=== PATIENT | male | born 2005 | race Caucasian/White ===

== ENCOUNTER 2024-09-13 13:09 | Emergency (ER) | payer OTHER, SELFPAY ==
[2024-09-13 13:31] VITALS: BP 129/77; PULSE 107; RESP 16; TEMP 36.9; O2SAT 100
--- NOTE | 2024-09-13 13:58 | ED.MALEGU ---
HPI - Male Genitourinary General Chief complaint: Urogenital-Male Stated complaint: TESTICLE PAIN Time Seen by Provider: 09/13/24 13:39 Source: patient, family (Mother) and RN notes reviewed Mode of arrival: ambulatory Limitations: no limitations History of Present Illness HPI Narrative: Patient presents today complaining of discomfort to the left testicle. States he was in the shower 3 days ago and felt his left testicle rotate, ?in an abnormal fashion. ? States that now his left testicle is riding higher than the right which is abnormal for him. Also reports some, ?tightness? with intermittent mild discomfort, but denies outright pain, redness, swelling, dysuria, hematuria, urethral discharge. Related Data Home Medications ?Medication ?Instructions ?Recorded ?Confirmed ?Last Taken ?Type dicyclomine 10 mg capsule mg 09/13/24 Unknown History Allergies Allergy/AdvReac Type Severity Reaction Status Date / Time amoxicillin Allergy Unknown Unknown Verified 09/13/24 13:31 Review of Systems Review of Systems: CONSTITUTIONAL: Denies body aches, fever, chills, or sweats. EYES: Denies visual changes, redness, or discharge. ENT: Denies rhinorrhea, congestion, sore throat, or otalgia. CARDIOVASCULAR: Denies chest pain, palpitations, or edema. RESPIRATORY: Denies cough or dyspnea. GASTROINTESTINAL: Denies abdominal pain, nausea, vomiting, or diarrhea. GENITOURINARY: + left testicular discomfort/ tightness SKIN: Denies rash, itching, or wounds. MUSCULOSKELETAL: Denies back pain, joint pain, or myalgia. NEUROLOGIC: Denies headache, numbness, tingling, or weakness. PSYCH: Denies depression or anxiety. PMFSH Comments At time of signature, I have reviewed and agree with nursing past medical, surgical, social and family history unless otherwise noted. Please see nursing chart for further information. There is no relevant family history pertinent to the presenting complaint Exam Narrative: GENERAL: Well-appearing, well-nourished, and in no acute distress. HEAD: Normocephalic, atraumatic. EYES: EOMI. No redness or drainage. Conjunctivae normal. ENT: Mucous membranes pink and moist. NECK: Normal AROM. CHEST: No respiratory distress. : Exam chaperoned by Jacob Washington RT. Very mild tenderness to the anterior superior left testicle. No swelling, redness or other abnormalities. The left testicle is riding higher than the right. Right testicle normal and nontender. EXTREMITIES: Normal range of motion. No edema. SKIN: Warm, dry, no rash. Capillary refill normal. Normal skin turgor. NEURO: No focal deficits. Alert and oriented x3. Gait steady. PSYCH: Normal affect. No signs of depression or anxiety. Course Course Level of Care: Express Care Visit Vital Signs Vital signs: Vital Signs Temperature 98.5 F 09/13/24 13:31 Pulse Rate 107 H 09/13/24 13:31 Respiratory Rate 16 09/13/24 13:31 Blood Pressure 129/77 09/13/24 13:31 Pulse Oximetry 100 09/13/24 13:31 Temperature 98.5 F 09/13/24 13:31 Pulse Rate 107 H 09/13/24 13:31 Respiratory Rate 16 09/13/24 13:31 Blood Pressure 129/77 09/13/24 13:31 Pulse Oximetry 100 09/13/24 13:31 Reviewed Transfer Transfered to: [place] Transportation: Other (Private vehicle) Transfer rationale: Left testicular pain, r/o torsion Accepting physician: King MDM - Male Genitourinary MDM Narrative Medical decision making narrative: Patient will be transferred to the ED for further evaluation of his testicular discomfort and asymmetry. Differential Diagnosis Differential diagnosis: Likely epididymitis, inguinal hernia and other (testicular torsion) Critical Care Time Critical Care Time Critical Care Time: No Discharge Plan Discharge Clinical Impression: Left testicular pain Patient Disposition: Acute Care Hospital Condition: Stable Instructions: Antibiotic Form Patient Language: Turkmen Prescriptions: No Action dicyclomine 10 mg capsule Follow-up/Referrals: Harms,Rahul Guy M.D. [Primary Care Provider] - Time of Disposition: 13:59
== END 2024-09-13 14:03 | disposition short-term general hospital (02) ==
PROVIDERS: Emergency Provider Nurse Practitioner; PCP Family Medicine
DX: N50.812 Left testicular pain (principal)
CPT/HCPCS: 99212; G0463

== ENCOUNTER 2024-09-13 14:19 | Emergency (ER) | payer OTHER, SELFPAY ==
--- NOTE | ~2024-09-13 | US_ITS ---
TESTICULAR ULTRASOUND (Doppler ultrasound interrogation techniques used as needed for this exam.) Ordering provider: Pasha Malik MD History: . Intermittent testicular pain . Comparison: None. FINDINGS: TESTICLES: Normal in size. The right measures 4.1x 3.9x 3.9 cm and the left measures 6.2x 2.2x 1.1 cm . Normal echogenicity bilaterally without mass lesion. Normal Doppler flow bilaterally. EPIDIDYMIDES: Normal in size. The right measures 0.9 x 1x 0.9 cm and the left 0.9x 1x 0.9 cm. Normal echogenicity bilaterally. Both demonstrate normal Doppler flow. HYDROCELE: None. VARICOCELE: None. OTHER ABNORMALITY: None seen. IMPRESSION: normal testicular ultrasound. Reviewed, dictated and finalized at location A.
--- OUTSIDE RECORDS SUMMARY | 2024-09-13 14:22 | XMS_ITS | Continuity of Care Document ---
Author Name [facility] Organization [facility] Care Team Providers Care Oven Dumper Name Role Phone [facility] Unavailable Unavailable Medications Combined list of outpatient medications from Department of Defense and Veterans [facility] facilities.Medications provided include 1) outpatient medications from the last 15 months, and 2) patient-reported medications. Medication Details Route Status Patient Instructions Prescription Expires Prescription Number Last Dispense Date Ordering Provider Order Date Order Qty Source DICYCLOMINE HCL (dicyclomin e HCl), 10 MG, CAPSULE, ORAL, [facility], 100 ea. BOTTLE Active [id number] 4 2023 90 Pharmac y Data Transac tion Service Facilit y DICYCLOMINE HCL (dicyclomin e HCl), 10 MG, CAPSULE, ORAL, [employer] [facility], 100 ea. BOTTLE Active [id number] 4 2023 90 Pharmac y Data Transac tion Service Facilit y DICYCLOMINE HCL (DICYCLOMIN E HCL), 10MG, CAPSULE, ORAL, [facility], 100 ea. BOTTLE Cancele d [id number] : 2023 0 Pharmac y Data Transac tion Service Facilit y DICYCLOMINE HCL (DICYCLOMIN E HCL), 10MG, CAPSULE, ORAL, [facility], 100 ea. BOTTLE Active [id number] 4 2023 90 Pharmac y Data Transac tion Service Facilit y DICYCLOMINE HCL (DICYCLOMIN E HCL), 10MG, CAPSULE, ORAL, [facility], 100 ea. BOTTLE Active [id number] 4 2023 90 Pharmac y Data Transac tion Service Facilit y Allergies, Adverse Reactions, Alerts Combined list of allergies from Department of Defense and Veterans Affairs facilities. It does not include entries that were removed or entered in error. Substance Category Reaction Severity Reaction type Status Date Reported Comments Source Penicillins Propensity to adverse reactions to drug Urticaria Active 6 Unknown Organizat ion Immunizations Combined list of available immunizations from the Department of Defense and Veterans Affairs facilities. Immunization Series Date Given Administered By Site Reaction Lot Number CVX Code Drug Material Disposition Inspector Status Comments Source COVID-19, mRNA, LNP-S, PF, 30 mcg/0.3 mL dose 2020 [employer] [place] (PFR) Not Given COVID-19, mRNA, LNP-S, PF, 30 mcg/0.3 mL dose [facility] COVID-19, mRNA, LNP-S, PF, 30 mcg/0.3 mL dose 2020 [employer] [place] (PFR) Not Given COVID-19, mRNA, LNP-S, PF, 30 mcg/0.3 mL dose DoD influenza, injectable, quadrivalent, preservative free 2019 ANDIE TRUONG () Not Given influenza , injectabl e, quadrival ent, preservat della free DoD influenza, injectable, quadrivalent, preservative free 2018 VEGA HIRSCH () Not Given influenza , injectabl e, quadrival ent, preservat della free [facility] influenza, live, intranasal,qu adrivalent 2017 [employer] comple t ed influenza , live, intranasa l,quadriv alent 03/29/18 Given Ambulat ory Pharmac y Encounters Combined list of: 1) Encounters from Department of Veterans Affairs facilities going backup to the last 18 months, not all VA inpatient encounters are included; 2) Encounters from the Department of Defense facilities going backup to 280 months. Location Location Details Encounter Type Encounter Number Reason For Visit Attending Provider ADM Date DC Date Status Disposition Source [facility](Josephine Mckenna Team) OUTPATIENT [id number] Well child visit / ADHD followu REG Cohen 11/25 Released w/o Limitations [facility](Nichelle mckoy Team) [facility](Josephine Mckenna Team) TELE CONSULT [id number] Notes Entered by: LIANNE LYN 25 Feb 2016 0846 ------- ------- ------- ------- -- med refill- 14 days left MANAN SILVA 02/24 Referred for Appointment [facility](P ediatri c Monster s Team) [facility](Ped iatric Monsters Team) TELE CONSULT [id number] Notes Entered by: SURESH SANTIAGO 10 Apr 2016 0836 ------- ------- ------- ------- -- MTF ED F/U 6 ALBERTO JOHNSON 04/10 [facility](P ediatri c Monster s Team) [facility](Ped iatric Monsters Team) OUTPATIENT [id number] fever x 8 days, cough x 1 mth, worseni REG Brock 04/24 Released w/o Limitations [facility](P ediatri c Monster s Team) [facility](Ped iatric Monsters Team) TELE CONSULT [id number] Notes Entered by: SIDNEY SALGUERO 28 Apr 2016 0835 ------- ------- ------- ------- -- symptom atALBERTO Goodwin 04/28 [facility](P ediatri c Monster s Team) [facility](Ped iatric Monsters Team) OUTPATIENT [id number] 6 month ADHD med check DEJAN LOONEY 07/14 Released w/o Limitations [facility](P ediatri c Monster s Team) [facility](Ped iatric Monsters Team) TELE CONSULT [id number] Notes Entered by: JODY BRIGHT 24 Jul 2016 0859 ------- ------- ------- ------- -- med renewal /told to call per ALBERTO Glass 07/24 Medication Refill Forwarded [facility](P ediatri c Monster s Team) [facility](Ped iatric Monsters Team) TELE CONSULT [id number] Notes Entered by: Lux MCKEON 26 Jul 2016 0906 ------- ------- ------- ------- -- New Medicat ion - needs paper script to [facility] Pharmac y BRANDI JOHNSONMOL 07/26 Advice Assessment [facility](P marjiatri c Ana Mter s Team) [facility](Ped iatric Monsters Team) TELE CONSULT [id number] Notes Entered by: DAWNA LINDSAY 01 Aug 2016 1404 ------- ------- ------- ------- -- 2nd TCON, non fomular y med issue, out of meds ALBERTO JOHNSON 08/01 Medication Refill Forwarded [facility](P ediatri c Ana Mter s Team) [facility](Ped iatric Monsters Team) TELE CONSULT [id number] Notes Entered by: Dio MALDONADO 10 Aug 2016 0941 ------- ------- ------- ------- -- med refill ALBERTO JOHNSON 08/10 Referred for Appointment [facility](P marjiatri c Ana Mter s Team) [facility](Ped iatric Monsters Team) OUTPATIENT [id number] 3 month weight check DEJAN LOONEY 09/07 Released w/o Limitations [facility](P marjiatri c Mike s Team) Procedures Combined list of: 1) Procedures from Department of Veterans Affairs facilities going back up to thelast 18 months, not all VA non-surgical procedures are included; 2) All procedures from the Department of Defense facilities. Procedure Procedure Type Code Date Perfomer Comments Sourc e No data available for this section Ambulatory Pharmacy TELE ASSESS & MGT SRV PROV QUAL NONPHYS HLTH CARE PRO TO EST PAT,PARENT,GUA RD NOT ORIG REL ASSESS & MGT SRV PROV W/IN PREV 7 DAYS NOR LEAD ASSESS & MGT SRV/PX W/IN NXT 24 HR/SOON APT;5-10 MIN MED DIS 7 DoD TELE ASSESS & MGT SRV PROV QUAL NONPHYS HLTH CARE PRO TO EST PAT,PARENT,GUA RD NOT ORIG REL ASSESS & MGT SRV PROV W/IN PREV 7 DAYS NOR LEAD ASSESS & MGT SRV/PX W/IN NXT 24 HR/SOON APT;5-10 MIN MED DIS 7 DoD TELE ASSESS & MGT SRV PROV QUAL NONPHYS HLTH CARE PRO TO EST PAT,PARENT,GUA RD NOT ORIG REL ASSESS & MGT SRV PROV W/IN PREV 7 DAYS NOR LEAD ASSESS & MGT SRV/PX W/IN NXT 24 HR/SOON APT;5-10 MIN MED DIS 7 DoD TELE ASSESS & MGT SRV PROV QUAL NONPHYS HLTH CARE PRO TO EST PAT,PARENT,GUA RD NOT ORIG REL ASSESS & MGT SRV PROV W/IN PREV 7 DAYS NOR LEAD ASSESS & MGT SRV/PX W/IN NXT 24 HR/SOON APT;5-10 MIN MED DIS 7 DoD SCREENING TEST OF VISUAL ACUITY, QUANTITATIVE, BILATERAL 6 DoD Non-Physician Phone Call To Patient/Provid er Brief (5-10min) Non-Physician Phone Call To Patient/Provid er Brief (5-10min) [id number] 7 DEJAN LOONEY time spent assessing about pt with parent 5 minutes. DoD Non-Physician Phone Call To Patient/Provid er Brief (5-10min) Non-Physician Phone Call To Patient/Provid er Brief (5-10min) [id number] 7 DEJAN LOONEY time spent with discussing patient care with parent 5 minutes DoD Non-Physician Phone Call To Patient/Provid er Brief (5-10min) Non-Physician Phone Call To Patient/Provid er Brief (5-10min) [id number] 7 ALBETRO JOHNSON time spent with discussing patient care with parent . pharmacy 8 minutes. DoD Non-Physician Phone Call To Patient/Provid er Brief (5-10min) Non-Physician Phone Call To Patient/Provid er Brief (5-10min) [id number] 7 DEJAN LOONEY time spent with discussing patient care with parent 5 minutes. DoD Non-Physician Phone Call To Patient/Provid er Brief (5-10min) Non-Physician Phone Call To Patient/Provid er Brief (5-10min) [id number] 6 ALBERTO JOHNSON DoD Non-Physician Phone Call To Patient/Provid er Brief (5-10min) Non-Physician Phone Call To Patient/Provid er Brief (5-10min) [id number] 6 ALBERTO JOHNSON [facility] Audiogram (Screening) Audiogram (Screening) 21426 6 REG CORTES Tone/Frequency Right Ear Left Ear 500 Hertz @25db PASS PASS 1000 Hertz@25db PASS PASS 2000 Hertz@25db PASS PASS 4000 Hertz@25db PASS PASS Ambient Noise None/Little Child's cooperation [facility] Screening Test Of Visual Acuity, Quantitative, Bilateral Screening Test Of Visual Acuity, Quantitative, Bilateral 99933 6 REG CORTES See vitals section DoD Social History Combined list of available smoking, tobacco, and other social history from Department of Defense and Veterans Affairs facilities. Social History Type Response Date Comment Sourc e Sex Representation Male (finding) 09/20/2022 Un known Organization Sexual Orientation Ambula tory Pharmacy Gender identity Ambulator y Pharmacy This section is an empty social history section. DoD Assessment and Plan Combined list of future care activities from Department of Defense and Veterans Affairs facilities (e.g., assessment and plan notes, appointments, orders, and referrals). Additional future care activities may be listed in the Plan of Care section. Result Assessment and Plan Date Source Assessment and Plan No data available for this section 09/13/2024 Ambulatory Pharmacy Functional Status Combined list of recent functional and cognitive assessments recorded at Department of Defense and Veterans Affairs (VA).VA Functional [place] Measurement (FIM) Scale: 1 = Total Assistance (Subject = 0% +), 2 = Maximal Assistance (Subject = 25% +), 3 = Moderate Assistance (Subject = 50% +), 4 = Minimal Assistance (Subject = 75% +), 5 = Supervision, 6 = Modified [place] (Device), 7 = Complete [place] (Timely, Safely). Assessment Date/Time Source Assessment Type Assessment Skill Assessment Score Assessment Details No data available for this section
--- OUTSIDE RECORDS SUMMARY | 2024-09-13 14:51 | XMS_ITS | Continuity of Care Document ---
Author Name [facility] Organization [facility] Care Team Providers Care Safety And Occupational Health Manager Name Role Phone [facility] Unavailable Unavailable Medications Combined list of outpatient medications from Department of Defense and Veterans [facility] facilities.Medications provided include 1) outpatient medications from the last 15 months, and 2) patient-reported medications. Medication Details Route Status Patient Instructions Prescription Expires Prescription Number Last Dispense Date Ordering Provider Order Date Order Qty Source DICYCLOMINE HCL (dicyclomin e HCl), 10 MG, CAPSULE, ORAL, [employer] [facility], 100 ea. BOTTLE Active [id number] 2023 90 Pharmac y Data Transac tion Service Facilit y DICYCLOMINE HCL (dicyclomin e HCl), 10 MG, CAPSULE, ORAL, [employer], 100 ea. BOTTLE Active [id number] 4 2023 90 Pharmac y Data Transac tion Service Facilit y DICYCLOMINE HCL (DICYCLOMIN E HCL), 10MG, CAPSULE, ORAL, [facility], 100 ea. BOTTLE Cancele d [id number] : 2023 0 Pharmac y Data Transac tion Service Facilit y DICYCLOMINE HCL (DICYCLOMIN E HCL), 10MG, CAPSULE, ORAL, [facility], 100 ea. BOTTLE Active [id number] 4 2023 90 Pharmac y Data Transac tion Service Facilit y DICYCLOMINE HCL (DICYCLOMIN E HCL), 10MG, CAPSULE, ORAL, [facility], 100 ea. BOTTLE Active [id number] 4 2023 90 Pharmac y Data Transac [...] Site Reaction Lot Number CVX Code Drug Central Office Associate Status Comments Source COVID-19, mRNA, LNP-S, PF, 30 mcg/0.3 mL dose 2020 [employer] (PFR) Not Given COVID-19, mRNA, LNP-S, PF, 30 mcg/0.3 mL dose [facility] COVID-19, mRNA, LNP-S, PF, 30 mcg/0.3 mL dose 2020 [employer] [place] (PFR) Not Given COVID-19, mRNA, LNP-S, PF, 30 mcg/0.3 mL dose [facility]D influenza, injectable, quadrivalent, preservative free 2019 ANDIE TRUONG () Not Given influenza , injectabl e, quadrival ent, preservat della free DoD influenza, injectable, quadrivalent, preservative free 2018 VEGA HIRSCH () Not Given influenza , injectabl e, quadrival ent, preservat della free [facility] influenza, live, intranasal,qu adrivalent 2017 149 [employer] comple t ed influenza , live, [...] ADM Date DC Date Status Disposition Source [facility](Josephine Mckenna Team) OUTPATIENT [id number] Well child visit / ADHD followu REG Cohen 11/25 Released w/o Limitations [facility](Nichelle mckoy Team) [facility](Josephine Mckenna Team) TELE CONSULT [id number] Notes Entered by: LIANNE LYN 25 Feb 2016 0846 ------- ------- ------- ------- -- med refill- 14 days left MANAN SILVA 02/24 Referred for Appointment [facility](P ediatri c Monster s Team) [facility](Ped iatric Monsters Team) TELE CONSULT [id number] Notes Entered by: SURESH SANTIAGO 10 Apr 2016 0836 ------- ------- ------- ------- -- MTF ED F/U 6 ALBERTO JOHNSON 04/10 [facility](P ediatri c Monster s Team) [facility](Ped iatric Monsters Team) OUTPATIENT [id number] fever x 8 days, cough x 1 mth, worseni REG Brock 04/24 Released w/o Limitations [facility](P ediatri c Monster s Team) [facility](Ped iatric Monsters Team) TELE CONSULT [id number] Notes Entered by: SIDNEY SALGUERO 28 Apr 2016 0835 ------- ------- ------- ------- -- symptom atALBERTO Goodwin 04/28 [facility](P ediatri c Monster s Team) [facility](Ped iatric Monsters Team) OUTPATIENT [id number] 6 month ADHD med check DEJAN LOONEY 07/14 Released w/o Limitations [facility](P ediatri c Monster s Team) [facility](Ped iatric Monsters Team) TELE CONSULT [id number] Notes Entered by: JODY BRIGHT 24 Jul 2016 0859 ------- ------- ------- ------- -- med renewal /told to call per ALBERTO Glass 07/24 Medication Refill Forwarded [facility](P ediatri c Monster s Team) [facility](Ped iatric Monsters Team) TELE CONSULT [id number] Notes Entered by: Lux MCKEON 26 Jul 2016 0906 ------- ------- ------- ------- -- New Medicat ion - needs paper script to [facility] Pharmac y BRANDI JOHNSONMOL 07/26 Advice Assessment [facility](P marjiatri c Ana Mter s Team) [facility](Ped iatric Monsters Team) TELE CONSULT [id number] Notes Entered by: DAWNA LINDSAY 01 Aug 2016 1404 ------- ------- ------- ------- -- 2nd TCON, non fomular y med issue, out of meds ALBERTO JOHNSON 08/01 Medication Refill Forwarded [facility](P ediatri c Ana Mter s Team) [facility](Ped iatric Monsters Team) TELE CONSULT [id number] Notes Entered by: Dio MALDONADO 10 Aug 2016 0941 ------- ------- ------- ------- -- med refill ALBERTO JOHNSON 08/10 Referred for Appointment [facility](P marjiatri c Ana Mter s Team) [facility](Ped iatric Monsters Team) OUTPATIENT [id number] 3 month weight check DEJAN LOONEY 09/07 Released w/o Limitations [facility](P marjiatri c Mike s Team) [...] Phone Call To Patient/Provid er Brief (5-10min) [id number] 7 DEJAN LOONEY time spent assessing about pt with parent 5 minutes. DoD Non-Physician Phone Call To Patient/Provid er Brief (5-10min) Non-Physician Phone Call To Patient/Provid er Brief (5-10min) [id number] 7 DEJAN LOONEY time spent with discussing patient care with parent 5 minutes DoD Non-Physician Phone Call To Patient/Provid er Brief (5-10min) Non-Physician Phone Call To Patient/Provid er Brief (5-10min) [id number] 7 ALBERTO JOHNSON time spent with discussing patient care with parent . pharmacy 8 minutes. DoD Non-Physician Phone Call To Patient/Provid er Brief (5-10min) Non-Physician Phone Call To Patient/Provid er Brief (5-10min) [id number] 7 DEJAN LOONEY time spent with discussing patient care with parent 5 minutes. DoD Non-Physician Phone Call To Patient/Provid er Brief (5-10min) Non-Physician Phone Call To Patient/Provid er Brief (5-10min) [id number] 6 ALBERTO JOHNSON DoD Non-Physician Phone Call To Patient/Provid er Brief (5-10min) Non-Physician Phone Call To Patient/Provid er Brief (5-10min) [id number] 6 ALBERTO JOHNSON [facility] Audiogram (Screening) Audiogram (Screening) [id number] 6 REG CORTES Tone/Frequency Right Ear Left Ear 500 Hertz @25db PASS PASS 1000 Hertz@25db PASS PASS 2000 Hertz@25db PASS PASS 4000 Hertz@25db PASS PASS Ambient Noise None/Little Child's cooperation [facility] Screening Test Of Visual Acuity, Quantitative, Bilateral Screening Test Of Visual Acuity, Quantitative, Bilateral [id number] 6 REG CORTES See vitals section DoD [...] of Defense and Veterans Affairs (VA).VA Functional [place] Measurement (FIM) Scale: 1 = Total Assistance (Subject = 0% +), 2 = Maximal Assistance (Subject = 25% +), 3 = Moderate Assistance (Subject = 50% +), 4 = Minimal Assistance (Subject = 75% +), 5 = Supervision, 6 = Modified [place] (Device), 7 = Complete [place] (Timely, Safely). Assessment Date/Time Source Assessment Type Assessment Skill Assessment Score Assessment Details No data available for this section
[2024-09-13 15:15] VITALS: BP 118/79; PULSE 66; RESP 19; O2SAT 100
--- NOTE | 2024-09-13 15:27 | ED_ITS ---
HPI - General Adult General Chief complaint: Urogenital-Male Stated complaint: Left testicular pain-sent by Time Seen by Provider: 09/13/24 14:20 History of Present Illness HPI narrative: 19-year-old male presenting to the emergency department for evaluation for left- sided intermittent testicular pain. Patient states the intermittent pain goes from minor to no pain. Patient denies any significant pain. Patient did feel his left testicle was high riding. Patient denies any high-risk sexual behavior. Patient denies any falls or injuries. Patient denies any change in urination. Patient has no prior history testicular surgeries. Related Data Home Medications ?Medication ?Instructions ?Recorded ?Confirmed ?Last Taken ?Type dicyclomine 10 mg capsule mg 09/13/24 Unknown History Allergies Allergy/AdvReac Type Severity Reaction Status Date / Time amoxicillin Allergy Unknown Unknown Verified 09/13/24 14:57 Review of Systems Review of Systems: All systems reviewed & are unremarkable except as noted in HPI and below Exam Narrative: APPEARANCE: Well appearing, no pain, no distress, well-nourished. HEAD: normocephalic, atraumatic. EYES: PERRLA/EOMI, conjunctivae clear. NOSE: Normal no drainage EARS:TMS clear with good light reflex. THROAT: Pharynx clear, no exudate. NECK: Supple. No adenopathy, no masses. RESPIRATORY: Airway patent, respirations nonlabored. Clear to auscultation bilaterally, no rales, rhonchi, wheezing. CARDIOVASCULAR: Regular rate and rhythm without murmurs rubs or gallops. ABDOMINAL: Soft, nontender, nondistended, normal bowel sounds MUSCULOSKELETAL: Moves all extremities. Strength/ROM intact, No edema, No calf tenderness. NEURO: Alert. Cranial nerves II through XII intact. Grossly intact Scrotal exam: No significant left-sided tenderness, no palpated hernia. No evidence of cellulitis no rash SKIN: Warm, dry. Normal Color Course Vital Signs Vital signs: Vital Signs Pulse Rate 09/13/24 15:15 Respiratory Rate 09/13/24 15:15 Blood Pressure 118/79 09/13/24 15:15 Pulse Oximetry 100 09/13/24 15:15 Pulse Rate 66 09/13/24 15:15 Respiratory Rate 09/13/24 15:15 Blood Pressure 118/79 09/13/24 15:15 Pulse Oximetry 100 09/13/24 15:15 Medical Decision Making MDM Narrative Medical decision making narrative: 19-year-old male present to the emergency department for evaluation for left- sided testicular pain. Patient was evaluated at urgent care and was referred to the emergency department for ultrasound. Differential Diagnosis Differential Diagnosis: UTI, STI, hydrocele, varicocele, epididymitis, torsion Vital Signs Vital Signs: Vital Signs Pulse Rate 66 09/13/24 15:15 Respiratory Rate 19 09/13/24 15:15 Blood Pressure 118/79 09/13/24 15:15 Pulse Oximetry 100 09/13/24 15:15 Pulse Rate 66 09/13/24 15:15 Respiratory Rate 19 09/13/24 15:15 Blood Pressure 118/79 09/13/24 15:15 Pulse Oximetry 100 09/13/24 15:15 Imaging Data Radiologist's impression: Impressions Scrotum Ultrasound 09/13/24 15:16 IMPRESSION: normal testicular ultrasound. Discharge Plan Discharge Clinical Impression: Left testicular pain Patient Disposition: Home Condition: Stable Instructions: Antibiotic Form Additional Instructions: Tylenol and ibuprofen for pain control. Have close follow-up with your primary care physician and with Urology if you have worsening symptoms. If you have any questions or concerns please call or return to the emergency department. Patient Language: Guamanian Prescriptions: No Action dicyclomine 10 mg capsule Follow-up/Referrals: Godwin Faria MD [Physician] - Harms,Rahul Guy M.D. [Primary Care Provider] -
== END 2024-09-13 15:43 | disposition home or self-care (01) ==
PROVIDERS: Emergency Provider Emergency Medicine; PCP Family Medicine
DX: N50.812 Left testicular pain (principal)
CPT/HCPCS: 76870; 93976; 99284